=== PATIENT | male | born 1970 | race Caucasian/White ===

== ENCOUNTER 2018-01-25 12:56 | Inpatient (IN) | payer BC ==
[~2018-01-25] VITALS: Ht 175.3 cm; Wt 99.8 kg
[2018-01-25 13:07] VITALS: Ht 175.3 cm; Wt 99.8 kg
[2018-01-25 14:19] LABS: BASOPHIL % 0.2 % (0-2); PLATELET COUNT 190 x10^3mcL (130-400)
[2018-01-25 14:23] LABS: RED CELL DISTRIBUTION WIDTH 15.1 % (11.5-14.5)
[2018-01-25 14:29] LABS: CALCIUM 7.9 mg/dL (8.5-10.1); CARBON DIOXIDE 26.5 mmol/L (21-32); CHLORIDE SERUM 108 mmol/L (98-107); GFR1 > 60 mL/min; GLUCOSE SERUM 92 mg/dL (74-106); POTASSIUM SERUM 4.4 mmol/L (3.5-5.1); SODIUM SERUM 140 mmol/L (136-145)
[2018-01-25 14:33] LABS: ALKALINE PHOSPHATASE 25 U/L (46-116); ALT/SGPT 27 U/L (16-63); AST/SGOT 13 U/L (15-37); BILIRUBIN TOTAL 0.25 mg/dL (0.20-1.00); LIPASE 181 IU/L (73-393)
[2018-01-25 14:35] LABS: ALBUMIN 2.8 g/dL (3.4-5.0); TOTAL PROTEIN, SERUM 5.2 g/dL (6.4-8.2)
[2018-01-25 15:47] VITALS: BP 102/38
[2018-01-25 16:30] VITALS: BP 119/52
[2018-01-25 16:35] LABS: RED BLOOD CELLS 3.15 M/mm3 (4.52-5.90)
[2018-01-25 16:43] LABS: T3 TOTAL 0.84 ng/mL
[2018-01-25 16:44] LABS: PHOSPHOROUS 1.8 mg/dL (2.5-4.9)
[2018-01-25 16:46] LABS: microscopic required? NO
[2018-01-25 16:49] LABS: FREE T4 0.96 ng/dL (0.76-1.46); T4(THYROXINE) 5.4 ug/dL (4.7-13.3)
[2018-01-25 17:01] LABS: CHOLESTEROL/HDL RATIO 5.2; IRON 55 ug/dL (65-170); TOTAL IRON BINDING CAPACITY 267 ug/dL (250-450)
[2018-01-25 17:04] LABS: UA SPECIFIC GRAVITY 1.025 (1.005-1.035); urine erythrocyte NEGATIVE (NEGATIVE)
[2018-01-25 17:39] LABS: AMPHETAMINE QUAL UR NONE DETECTED (NEG <=1000)
[2018-01-25 19:59] VITALS: BP 109/55
[2018-01-25 20:04] LABS: BASOPHIL % 0.3 % (0-2); PLATELET COUNT 171 x10^3mcL (130-400)
[2018-01-25 20:08] LABS: RED CELL DISTRIBUTION WIDTH 14.8 % (11.5-14.5)
[2018-01-25 21:20] VITALS: BP 106/58
[2018-01-26 06:01] VITALS: BP 109/55
[2018-01-26 06:37] LABS: CALCIUM 7.2 mg/dL (8.5-10.1); CARBON DIOXIDE 27.5 mmol/L (21-32); CHLORIDE SERUM 110 mmol/L (98-107); GFR1 > 60 mL/min; GLUCOSE SERUM 112 mg/dL (74-106); POTASSIUM SERUM 4.4 mmol/L (3.5-5.1); SODIUM SERUM 142 mmol/L (136-145)
[2018-01-26 07:04] LABS: BASOPHIL % 0.4 % (0-2); PLATELET COUNT 156 x10^3mcL (130-400); RED CELL DISTRIBUTION WIDTH 14.8 % (11.5-14.5)
[2018-01-26 08:36] VITALS: BP 107/54
[2018-01-26 13:40] VITALS: BP 99/45
[2018-01-26 17:26] VITALS: BP 111/31
[2018-01-26 20:47] VITALS: BP 117/49
[2018-01-27 05:40] VITALS: BP 113/41
[2018-01-27 08:44] LABS: BASOPHIL % 0.4 % (0-2); PLATELET COUNT 156 x10^3mcL (130-400)
[2018-01-27 08:47] LABS: CALCIUM 7.4 mg/dL (8.5-10.1); CHLORIDE SERUM 109 mmol/L (98-107); GFR1 > 60 mL/min; GLUCOSE SERUM 110 mg/dL (74-106); POTASSIUM SERUM 3.5 mmol/L (3.5-5.1); SODIUM SERUM 142 mmol/L (136-145)
[2018-01-27 08:49] LABS: RED CELL DISTRIBUTION WIDTH 15.6 % (11.5-14.5)
[2018-01-27 08:54] VITALS: BP 104/51
[2018-01-27] MEDS ORDERED: ONDANSETRON4 M3 PO (09:33)
[2018-01-27] MEDS ORDERED: FER300 PO (09:33)
[2018-01-27] MEDS ORDERED: VITC PO (09:34)
[2018-01-27] MEDS ORDERED: PROTONIX20 MG PO (09:36)
[2018-01-27] MEDS ORDERED: LEVAQUIN750 MG PO (09:51)
[2018-01-27] MEDS ORDERED: FLA500 PO (09:51)
[2018-01-27 11:21] LABS: rbc morphology (normal/abnorm) ABNORMAL (NORMAL)
[2018-01-27 12:33] VITALS: BP 104/51
== END 2018-01-27 13:25 | disposition home or self-care (01) | DRG 377 ==
LOC: ED 12:56 → DU 14:41 → MU 01-27 07:54
PROVIDERS: Emergency Medicine; Family Medicine; Internal Medicine
PROC: 0DB68ZX Excision of Stomach, Via Natural or Artificial Opening Endoscopic, Diagnostic (ICD-10-PCS; principal; 2018-01-26 11:00)
DX: K26.4 Chronic or unspecified duodenal ulcer with hemorrhage (principal); N17.0 Acute kidney failure with tubular necrosis; E43 Unspecified severe protein-calorie malnutrition; D62 Acute posthemorrhagic anemia; I95.9 Hypotension, unspecified; G90.8 Other disorders of autonomic nervous system; E83.39 Other disorders of phosphorus metabolism
CPT/HCPCS: 43235; 83880; 84439; C9113; G0480; J1200; J1610; J1956; J2250; J2310; J2354; J2405; J2916; J3010; J3490; J7030; Q0092; Q0163; Q9967